=== PATIENT | female | born 1950 | race African-American/Black ===

== ENCOUNTER 2022-07-08 13:53 | Inpatient (IN) | payer OTHER, BC ==
[2022-07-08] MEDS ORDERED: ACETAMINOPHEN 1000 MG/100 ML BAG IVPB ONE (14:26)
[2022-07-08] MEDS ORDERED: ACETAMINOPHEN INJECTION 100 ML IVPB ONE (14:58)
[2022-07-08 15:09] LABS: BASO % 1.4 % (0-2.0); EOS % 3.1 % (0-4.5); HEMATOCRIT 43.8 % (32.4-45.2); HEMOGLOBIN 14.3 GM/dL (10.7-15.3); LYMPH % 45.5 % (8-40); MCH 28.2 pg (25.7-33.7); MCHC 32.7 g/dl (32.0-36.0); MEAN CELL VOLUME 86.2 fl (80-96); MEAN PLT VOLUME 8.8 fl (7.5-11.1); MONO % 6.9 % (3.8-10.2); NEUT % 43.1 % (42.8-82.8); PLATELET COUNT 304 10^3/uL (134-434); RBC 5.08 M/mm3 (3.60-5.2); RDW 14.3 % (11.6-15.6); WHITE BLOOD COUNT 5.3 K/mm3 (4.0-10.0)
[2022-07-08 15:28] LABS: BLOOD UREA NITROGEN 10.8 mg/dL (7-18); CALCIUM 9.2 mg/dL (8.5-10.1)
[2022-07-08 15:29] LABS: ALBUMIN 3.7 g/dl (3.4-5.0)
[2022-07-08 15:32] LABS: CREATININE 0.7 mg/dL (0.55-1.3)
[2022-07-08 15:33] LABS: BILIRUBIN,TOTAL 0.3 mg/dL (0.2-1); TOT PROT 6.8 g/dl (6.4-8.2)
[2022-07-08 15:41] LABS: INR 0.98 (0.83-1.09); PROTHROMBIN TIME (PATIENT) 11.3 SEC (9.7-13.0)
[2022-07-08] MEDS ORDERED: IBUPROFEN 400 MG TABLET (FP) PO PRN (22:11)
[2022-07-08] MEDS ORDERED: APIXABAN 2.5 MG TABLET PO SCH (22:15)
[2022-07-08] MEDS ORDERED: ASPIRIN 81 MG CHEWABLE TABLETS ONE (23:42)
[2022-07-08] MEDS ORDERED: APIXABAN 2.5 MG TABLET ONE (23:42)
[2022-07-09] MEDS ORDERED: ASPIRIN 81 MG CHEWABLE TABLETS PO SCH ×2 (00:15→22:10)
[2022-07-09 01:37] VITALS: BMI 37.2
[2022-07-09] MEDS ORDERED: APIXABAN 2.5 MG TABLET PO ONE (02:14)
[2022-07-09] MEDS ORDERED: ACETAMINOPHEN 1000 MG/100 ML BAG IVPB ONE (02:20)
[2022-07-09] MEDS ORDERED: IBUPROFEN 400 MG TABLET (FP) PO SCH (06:00)
[2022-07-09 09:48] VITALS: BP 156/85; PULSE 69; RESP 20; TEMP 98.6
[2022-07-09] MEDS ORDERED: ENOXAPARIN NA (PORCINE) 40 MG/0.4 ML DISP.SYRIN SQ SCH (10:00)
[2022-07-09] MEDS ORDERED: amLODIPine BESYLATE 10 MG TABLET (FP) PO SCH (10:00)
[2022-07-09 11:42] LABS: HEMATOCRIT 43.1 % (32.4-45.2); HEMOGLOBIN 14.4 GM/dL (10.7-15.3); MCH 28.6 pg (25.7-33.7); MCHC 33.5 g/dl (32.0-36.0); MEAN CELL VOLUME 85.4 fl (80-96); MEAN PLT VOLUME 8.8 fl (7.5-11.1); PLATELET COUNT 310 10^3/uL (134-434); RBC 5.04 M/mm3 (3.60-5.2); RDW 14.2 % (11.6-15.6); WHITE BLOOD COUNT 4.2 K/mm3 (4.0-10.0)
[2022-07-09] MEDS ORDERED: APIXABAN 2.5 MG TABLET PO SCH (11:50)
[2022-07-09 12:01] LABS: BLOOD UREA NITROGEN 9.2 mg/dL (7-18); CALCIUM 9.3 mg/dL (8.5-10.1); MAGNESIUM 2.3 mg/dL (1.8-2.4)
[2022-07-09 12:03] LABS: CREATININE 0.6 mg/dL (0.55-1.3); PHOSPHOROUS 2.6 mg/dL (2.5-4.9)
[2022-07-09] MEDS ORDERED: METHIMAZOLE 5 MG TABLET PO SCH (22:00)
== END 2022-07-09 12:45 | disposition home or self-care (01) | DRG 300 ==
LOC: JER 13:53 → JERBED 18:45 → OBSVTOIN 21:49 → J5S 07-09 00:16
PROVIDERS: ADMIT Internal Medicine
DX: I80.02 Phlebitis and thrombophlebitis of superficial vessels of left lower extremity (principal); C20 Malignant neoplasm of rectum; I10 Essential (primary) hypertension; E78.5 Hyperlipidemia, unspecified; E05.00 Thyrotoxicosis with diffuse goiter without thyrotoxic crisis or storm; M71.22 Synovial cyst of popliteal space [Baker], left knee; I73.9 Peripheral vascular disease, unspecified; K21.9 Gastro-esophageal reflux disease without esophagitis
CPT/HCPCS: 36415; 73590-TC-LT-FY; 80048; 80053; 83735; 84100; 85025; 85027; 85379; 85610; 85730; 93005; 93010; 93971-TC; 99285-25; C9803-CS; G0378; U0003; U0005